=== PATIENT | male | born 1960 | race Caucasian/White ===

== ENCOUNTER 2016-05-27 10:01 | Emergency (ER) | payer OTHER ==
[~2016-05-27 10:01] MED LIST: AMARYL2 PO; LOPID6 PO; LOTE20 PO; MULTIVIT/MIN PO; NEXIUM40 PO; VICTOZA18 MG/3 ML SC; XANAX1 MG PO
== END 2016-05-27 11:53 | disposition home or self-care (01) ==
LOC: ER 10:01
DX: R04.0 Epistaxis (principal); F17.200 Nicotine dependence, unspecified, uncomplicated; I10 Essential (primary) hypertension; K21.9 Gastro-esophageal reflux disease without esophagitis; F41.9 Anxiety disorder, unspecified; E11.9 Type 2 diabetes mellitus without complications; Z88.1 Allergy status to other antibiotic agents; Z79.899 Other long term (current) drug therapy
CPT/HCPCS: 99283; A9270-GY